=== PATIENT | male | born 1985 | race Caucasian/White ===

== ENCOUNTER → 2019-12-09 07:47 | Outpatient (BNVA) | payer OTHER, SELFPAY | PROVIDERS: Visit Provider Nurse Practitioner | DX: F33.42 Major depressive disorder, recurrent, in full remission (principal); F43.12 Post-traumatic stress disorder, chronic | CPT/HCPCS: 99213 ==

== ENCOUNTER → 2020-03-15 07:59 | Outpatient (BNVA) | payer SELFPAY | PROVIDERS: Visit Provider Nurse Practitioner | DX: F43.12 Post-traumatic stress disorder, chronic (principal); F33.42 Major depressive disorder, recurrent, in full remission; F41.1 Generalized anxiety disorder | CPT/HCPCS: 99213 ==

== ENCOUNTER 2020-12-20 04:48 | Emergency (ER) | payer OTHER, SELFPAY ==
[2020-12-20 04:52] VITALS: BP 135/94; PULSE 95; RESP 16; TEMP 36.6; O2SAT 97; BMI 29.0
[2020-12-20] MEDS: fluorescein 1 mg Strip EYE-RIGHT (05:08)
[2020-12-20] MEDS: eye irrigation 30 mL Btl EYE-BOTH (05:09)
[2020-12-20] MEDS: tetracaine 0.5% Op Soln 4 mL Btl 4 DROP EYE-RIGHT (05:09)
--- NOTE | 2020-12-20 05:10 | W.ED.EYEPROB ---
HPI - Eye Problem General: Chief complaint: Eye Problems Stated complaint: eye injury Time Seen by Provider: 12/20/20 04:58 Source: patient and family Mode of arrival: ambulatory Limitations: no limitations History of Present Illness: HPI Narrative: Right eye scraped with a limb at 11 PM tonight. Patient went to bed and felt fine except for some mild eye pain. His vision was clear. He was awakened with sharp pain in his right eye. Denies any foreign body. chief complaint: eye pain and eye injury Onset (ago): hour(s) (6) Onset description: sudden Duration: constant Location: right eye Eye Symptoms: pain Place: other (Outdoors) Mechanism: direct trauma Severity: severe If Pain, Quality: sharp Associated symptoms: Reports no associated symptoms; Denies fever(s), headache(s), nausea, neck pain or vomiting Treatments Prior to Arrival: none Review of Systems Const: Denies: fever(s) or chills Eyes: Reports: eye discomfort; Denies: change in vision, blurry vision or eye redness ENMT: Denies: throat pain Card: Denies: chest pain or palpitations Resp: Denies: dyspnea or wheezing GI: Denies: abdominal pain, nausea or vomiting : Denies: flank pain Musc: Denies: neck pain or back pain Skin/Breast: Denies: rash or pruritus Neuro: Denies: headache(s) or numbness in extremities Psych: Denies: anxiety Vitor/Lymph: Denies: enlarged lymph nodes PFSH ED PFSH: Medical History (Updated 12/20/20 @ 05:17 by Tolu López MD) Anxiety Depression Major depressive disorder, recurrent, in full remission Post-traumatic stress disorder, chronic Social History Smoking and tobacco status: never smoked Second hand smoke exposure: Yes Alcohol intake: never Current occupational status: employed Physical Exam Const: COMMON NORMALS: healthy appearing and alert GENERAL APPEARANCE: cooperative and other (Moderate pain due to right eye pain) HENMT: COMMON NORMALS: normocephalic, atraumatic and Normal external nose present HEAD & SCALP: normocephalic and atraumatic FACE & SINUS: normal facial exam NOSE: Normal external nose present Eye: COMMON NORMALS: Equal, round and reactive pupils present, EOMs intact bilaterally and conjunctivae normal ALIGNMENT: Yes alignment normal EYELID: eyelids normal CONJUNCTIVA: Yes conjunctivae normal SCLERA: sclerae normal CORNEA: Yes fluorescein used PUPIL: Yes Equal, round and reactive pupils present DIRECT OPHTHALMOSCOPY: Yes anterior chamber normal SLIT LAMP EXAM: Yes slit lamp exam performed with fluorescein and Yes cornea (Superficial corneal abrasion at the 8:00 o'clock position of the r cornea) Neuro: SENSORIUM/ORIENTATION: Yes alert Course Vital Signs: Vital signs: Vital Signs Temperature 97.9 F 12/20/20 04:52 Pulse Rate 95 12/20/20 04:52 Respiratory Rate 16 12/20/20 04:52 Blood Pressure 135/94 12/20/20 04:52 Pulse Oximetry 97 12/20/20 04:52 MDM - Eye Problem MDM Narrative: Medical decision making narrative: Trevizo lamp used with tetracaine followed by fluorescein stain and eye wash. Patient had almost complete relief of pain with the tetracaine. No foreign body found. Lids were everted. Superficial abrasion to the cornea at the 8 o'clock position seen. Discharge Plan Discharge Patient Disposition: Home Clinical Impression: Corneal abrasion, right Qualifiers: Encounter type: initial encounter Qualified Code(s): S05.01XA - Injury of conjunctiva and corneal abrasion without foreign body, right eye, initial encounter Condition: Stable Prescriptions: No Action alprazolam [Xanax] 1 mg tablet 1 mg PO DAILY Qty: 30 RF: 1 fluoxetine [Prozac] 20 mg capsule 20 mg PO DAILY Qty: 30 RF: 1 diclofenac sodium [Voltaren] 1 % gel 2 gm TOPICAL QID Qty: 100 RF: 0 Discharge Orders: Discharge ED (Routine); Ordered 12/20/20 Ordered By: Tolu López Referrals: Shady Dye MD [Physician] - 1-3 days (as needed) Discharge Activity: Limit activity as instructed Patient Instructions: Opioid Safety Activity Restrictions/Additional Instructions: Off work for the next 2 days.May use numbing drops 1 or 2 more times and then stop using the drops. May also use eyewash as needed. Place IV antibiotic ointment in right eye 4-5 times a day for the next 5 days to prevent infection. Follow-up with eye doctor if no improvement in 48 hours. Stand Alone Forms: Work/School Release Coding Level of Care Code ED Package Winder for Chg Fwd Exam Expanded Problem Focused
[2020-12-20] MEDS: neomycin-poly-dex Op oint 3.5 gm 1 APPLIC EYE-RIGHT (05:43)
[2020-12-20 05:48] VITALS: BP 111/78; PULSE 60; RESP 16; O2SAT 98
== END 2020-12-20 05:49 | disposition home or self-care (01) ==
PROVIDERS: Emergency Provider Family Medicine
DX: S05.01XA Injury of conjunctiva and corneal abrasion without foreign body, right eye, initial encounter (principal); Z77.22 Contact with and (suspected) exposure to environmental tobacco smoke (acute) (chronic); X58.XXXA Exposure to other specified factors, initial encounter
CPT/HCPCS: 99283

== ENCOUNTER 2022-02-08 20:00 | Outpatient (CLI) | payer OTHER, SELFPAY | END 2022-02-08 20:01 | disposition home or self-care (01) | LOC: SLEEP 02-09 06:51 | PROVIDERS: Visit Provider Emergency Medicine Emergency Medical Services | DX: R06.83 Snoring (principal) | CPT/HCPCS: 95810 ==